=== PATIENT | male | born 2005 | race Caucasian/White ===

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

== ENCOUNTER 2024-02-21 19:16 | Emergency (ER) | payer MEDICAID ==
[~2024-02-21] VITALS: Ht 172.7 cm; Wt 78.0 kg
[~2024-02-21 19:16] MED LIST changes: +ALBMDI INH; +DIPH25CA83 PO; +EPIN0.3P3 IM; +HYDC2.5% TP; +PRED20TA PO
[2024-02-21 19:25] VITALS: BP_SYST 127; PULSE 68; RESP 16; TEMP 97.6; O2SAT 99
[2024-02-21] MEDS ORDERED: NAPR-690 PO (21:20)
== END 2024-02-21 21:00 | disposition home or self-care (01) ==
LOC: SED 19:16
DX: S60.221A Contusion of right hand, initial encounter (principal); J45.909 Unspecified asthma, uncomplicated; Z79.52 Long term (current) use of systemic steroids; Z79.899 Other long term (current) drug therapy; X58.XXXA Exposure to other specified factors, initial encounter; Y93.89 Activity, other specified; Y92.89 Other specified places as the place of occurrence of the external cause; Y99.8 Other external cause status
CPT/HCPCS: 99283